=== PATIENT | male | born 1960 | race Caucasian/White ===

== ENCOUNTER → 2023-10-02 17:15 | Outpatient (REF) | payer BC, SELFPAY | LOC: RAD 17:15 | PROVIDERS: ATTENDING PHYSICIAN Physician Assistant | DX: M54.6 Pain in thoracic spine (principal) | CPT/HCPCS: 72072 ==

== ENCOUNTER → 2024-06-23 14:30 | Outpatient (REF) | payer BC, SELFPAY | LOC: RAD 14:30 | PROVIDERS: ATTENDING PHYSICIAN Physician Assistant | DX: E78.2 Mixed hyperlipidemia (principal) | CPT/HCPCS: 71101 ==